=== PATIENT | male | born 1980 | race Caucasian/White ===

== ENCOUNTER 2016-05-29 03:33 | Emergency (ER) | payer OTHER, MEDICAID ==
[~2016-05-29] VITALS: Ht 157.5 cm; Wt 88.9 kg
[2016-05-29 03:33] VITALS: BP 134/82; PULSE 98; RESP 14; TEMP 98.6; O2SAT 98
--- NOTE | 2016-05-29 03:33 | NUR ---
[facility] Side rails up. Report given to EVELINE VELA.
--- NOTE | 2016-05-29 03:35 | NUR ---
PT BROUGHT IN BY [facility] FOR BLOOD DRAW AND MEDICAL CLEARANCE. PT DENIES MEDICAL COMPLAINT.
--- NOTE | 2016-05-29 03:40 | NUR ---
Written and verbal consent obtained from patient for blood alcohol, name and verified by patient. Disinfected patient's skin with iodine that did not contain alcohol or other volatile organic compound. Collected the blood from the subject named by venipuncture, in the presence of Officer [id number]. Used a sterile, dry hypodermic needle and dry vacuum blood collection. The dry vacuum blood collection was supplied by the officer named above. Withdrew a specimen of blood from left of the subject named above. Inverted the blood tube several times to ensure that the preservative and anticoagulant were thoroughly mixed in the blood specimen. I initialed the blood tube label for identification. The labeled blood tube was handed directly to the Officer named above. The blood tube stopper remained in place while I had possession of the blood tube. The Officer placed tube into envelope and sealed it in my presence. Envelope initialed by myself and Officer named above. Patient tolerated well, bandage applied, and bleeding controlled.
--- NOTE | 2016-05-29 03:40 | NUR ---
MARILEE Flor at bedside examining patient.
[2016-05-29 03:50] VITALS: BP 132/78; PULSE 99; RESP 16; TEMP 98.1; O2SAT 100
--- NOTE | 2016-05-29 03:50 | NUR ---
Patient verbalizes understanding OF D/c with [facility]. ER MD discussed with patient the results and treatment provided. Patient in stable condition. ID arm band removed. Patient educated on pain management and to follow up with PMD. Pain Scale 0/10. Opportunity for questions provided and answered.
== END 2016-05-29 03:50 | disposition home or self-care (01) ==
LOC: SED 03:33
DX: Z02.89 Encounter for other administrative examinations (principal)